=== PATIENT | male | born 1960 | race Caucasian/White ===

== ENCOUNTER 2018-01-02 09:53 | Inpatient (IN) ==
[2018-01-02] MEDS ORDERED: Metoprolol Tartrate 25 MG Tablet PO ONE (10:42)
[2018-01-02] MEDS ORDERED: Chlorhexidine Gluconate 2% 1 Pack (2 Cloths) TOPICAL ONE (10:42)
[2018-01-02] MEDS ORDERED: Sodium Chlor 0.9% Inj 73.07 ML, Ropivacaine 0.5% PF Inj 24.63 ML, Ketorolac Inj 30 MG, ... P-ARTICULR SCH ×5 (10:45)
[2018-01-02] MEDS ORDERED: Chlorhexidine 4% Topical 120 APPLIC/120 ML Bottle TOPICAL SCH (10:45)
[2018-01-02] MEDS ORDERED: Dexamethasone PF Inj 10 MG/ML Vial ONE (10:49)
[2018-01-02] MEDS ORDERED: ceFAZolin 2 GM Premix Inj 0 GM/0 ML PIGGYBACK IV.SIG ONE (10:50)
[2018-01-02] MEDS ORDERED: Sodium Chloride 0.9% 2 ML Flush PRN IV.FLUSH (10:59)
[2018-01-02] MEDS ORDERED: SODIUM CHLOR 0.9% IV.SIG SCH ×2 (11:00→17:00)
[2018-01-02] MEDS ORDERED: Dexamethasone Inj 20 MG/5 ML Vial IV.PUSH ONE (11:00)
[2018-01-02] MEDS ORDERED: ceFAZolin 2 GM Premix Inj 2 GM/50 ML PIGGYBACK IV.SIG SCH (11:00)
[2018-01-02] MEDS ORDERED: Sodium Chlor 0.9% Inj 500 ML IV.SIG SCH (11:00)
[2018-01-02] MEDS ORDERED: TRANEXAMIC ACID IV.SIG SCH ×2 (11:00→17:00)
[2018-01-02] MEDS ORDERED: Vancomycin Inj 1,000 MG in Sodium Chlor 0.9% Inj 250 ML IV.SIG SCH (11:00)
[2018-01-02] MEDS ORDERED: Lidocaine PF 1% Inj 5 ML Vial ONE (12:34)
[2018-01-02] MEDS ORDERED: Bupivacaine 0.5% Inj 50 ML MDV Vial ONE (12:34)
[2018-01-02] MEDS ORDERED: Bupivacaine Liposomal PF 1.3% Inj 20 ML Vial ONE (12:34)
[2018-01-02] MEDS ORDERED: Bupivacaine/Dextrose 0.75% Inj 2 ML Ampul ONE ×2 (12:44→13:36)
[2018-01-02] MEDS ORDERED: Propofol Inj 500 MG/50 ML Vial ONE ×2 (12:44→15:34)
[2018-01-02] MEDS ORDERED: Aluminum/Magnesium/Simethacone Susp 30 ML UDC PO PRN (15:47)
[2018-01-02] MEDS ORDERED: Post-op Orders (for Pharmacy) OTHER STA (15:47)
[2018-01-02] MEDS ORDERED: Bisacodyl 10 MG Supp RECTAL PRN (15:47)
--- NOTE | 2018-01-02 15:49 | P.OP ---
- Preoperative Diagnosis (1) Osteoarthritis of left knee - Postoperative Diagnosis (1) Osteoarthritis of left knee Date of procedure: 01/02/18 Procedure: Left total knee arthroplasty Anesthesia: regional, spinal Surgeon: Francisco Pink MD Kiln Drawer: CEASAR Dodson The surgical procedure was assisted by my Advanced Registered Nurse Practitioner. My MOTORCYCLE MAKER presence was necessary throughout this case for the manipulation and positioning of the surgical extremity. My MOTORCYCLE MAKER was assisting me throughout the duration of this procedure. The skill set of an Advance Registered Nurse Practitioner was medically necessary to complete this procedure. During the surgical case, the instructor adjunct surgical technician was working at the back table and the Advance Registered Nurse Practitioner was directly assisting me. Operation and Findings: IMPLANTS: DePuy Attune: Patella: size 38. Femur, posterior stabilized size 8. Tibia, rotating platform size 7. Tibial insert, rotating platform, posterior stabilized size 5 mm thickness. ESTIMATED BLOOD LOSS: 75 cc TOURNIQUET TIME: 45 minutes at 250 mmHg pressure. JUSTIFICATION FOR PROCEDURE: The patient has end-stage osteoarthritis to the knee. There is an attached conservative measures pathway form in the chart that describes the nonoperative measures that were undertaken prior to consideration of surgical management. The patient understood the risks and benefits of surgical management. See my office notes for further details PROCEDURE: The patient was brought back to the operative theatre. Adequate anesthesia was obtained. The patient received intravenous vancomycin and Ancef. The lower extremity was prepped and draped in the usual sterile fashion.The leg was exsanguinated, the tourniquet was raised. A standard anterior incision was performed followed by medial parapatellar arthrotomy was performed. End-stage arthritis was identified. Osteotomy of the patella was performed. We drilled holes for the patella. We trialed the patella component. We placed an intramedullary guide into the distal femur. We ultimately resected 13 mm off of the distal femur in 5 degrees of valgus. The remnants of the ACL and PCL were resected. Osteotomy of the proximal tibia was performed, resecting 7 mm off of the medial side. This was done with 3 degrees of posterior slope using an extramedullary guide. The distal end of the guide was placed in the mid aspect of the ankle. The femur was sized, and four chamfer cuts were completed in 3 of external rotation. We then cut the central box in the distal femur to replace the PCL. We resected the remnants of the menisci and removed osteophytes off of the femur and tibia. We then trialed the knee. We punched the tibia for the keel, and then used standard technique to cement in components. Excess cement was removed. We trialed the knee again and the final polyethylene thickness was chosen to provide extension to 0 degrees, and flexion of 140 degrees to gravity. The ligaments were appropriately balanced. Lateral release was necessary to obtain excellent patellofemoral tracking. The tourniquet was released and adequate hemostasis was obtained. An intra- articular injection of a ropivacaine cocktail was injected. The posterior knee was inspected for excess cement, which was removed. The final polyethylene was put into position after thorough irrigation. We then closed deep fascia with a #2 Stratafix followed by skin with 2-0 Vicryl followed by Dermabond dressing. Postop plan is to weight-bear as tolerated. DVT prophylaxis will be performed with SCDs, TREV hose, early mobilization, and aspirin.
[2018-01-02] MEDS ORDERED: fentaNYL Citrate Inj 100 MCG/2 ML Ampul ONE (16:24)
--- NOTE | 2018-01-02 16:29 | P.DCO ---
- Physical Therapy Physical Therapy: Gait training, Transfer training, bed to chair Knee: Total knee Left Lower Extremity Weight Bearing: Weight bearing as tolerated Left Lower Extremity Range of Motion: Active ROM - Nursing Dressing changes: Do not change dressing Additional instructions: First dressing change in the office - Certification Need for Home Health services: I have seen patient Moreno Moore on 01/02/18. My clinical findings support the need for the requested home health care services because: Need for Home Health Services: Limited ability to care for self, High risk of falls Homebound Certification: I certify that my clinical findings support that this patient is homebound because: Homebound Certification: Post-op weakness, Unsteady gait/balance
--- NOTE | 2018-01-02 16:54 | XR ---
EXAM DATE: 01/02/2018 4:35 PM EDT AGE/SEX: 57 years / Male INDICATIONS: Post op left knee replacement CLINICAL DATA: This is the patient's initial encounter. Patient reports that signs and symptoms have been present for 1 day and indicates a pain score of Nonresponsive. MEDICAL/SURGICAL HISTORY: None. None. COMPARISON: No prior exams available for comparison. FINDINGS: AP and lateral views of the knee were obtained and demonstrate the patient status post arthroplasty. The femoral and tibial components are intact and in normal alignment. There are postoperative changes involving the patella. There is anterior soft tissue swelling and gas. There is mild overlying artif act. CONCLUSION: Expected postsurgical changes status post arthroplasty. Electronically signed by: Raleigh Lilly MD 01/02/2018 4:53 PM EDT
[2018-01-02] MEDS: Sod Chloride 0.9% Inj 1,000 ML IV.CONT SCH (17:00)
[2018-01-02] MEDS: Morphine Sulfate Inj 2 MG/ML Vial IV.PUSH PRN ×2 (18:45→22:02)
[2018-01-02] MEDS: ceFAZolin 1 GM Premix Inj 1 GM/50 ML FROZ.PIGGY IV.SIG SCH (19:53)
[2018-01-02] MEDS ORDERED: Sodium Chloride 0.9% 2 ML Flush BID IV.FLUSH SCH (21:00)
[2018-01-02] MEDS ORDERED: Zolpidem Tartrate 5 MG Tablet PO PRN (21:00)
[2018-01-02] MEDS: Senna/Docusate Sodium 8.6/50 MG Tablet PO SCH (22:08)
[2018-01-03] MEDS: Morphine Sulfate Inj 2 MG/ML Vial IV.PUSH PRN ×2 (02:27→05:13)
[2018-01-03] MEDS: ceFAZolin 1 GM Premix Inj 1 GM/50 ML FROZ.PIGGY IV.SIG SCH ×2 (02:27→08:52)
[2018-01-03] MEDS: Sod Chloride 0.9% Inj 1,000 ML IV.CONT SCH (04:35)
[2018-01-03] MEDS: Multivitamin/Minerals Therapeutic Tablet PO SCH ×2 (05:35→08:53)
[2018-01-03 06:53] LABS: Hematocrit 36.7 % (39.0-51.0); Hemoglobin 12.6 gm/dL (13.0-17.0)
--- NOTE | 2018-01-03 07:23 | P.PNOP ---
Subjective Interval history: The patient is resting comfortably in bed in no acute distress. The patient states he has been able to ambulate with minimal difficulty. The patient has requested stronger pain medication. Physical Exam Vital signs: Vital Signs 01/02/18 10:42 01/02/18 16:07 01/02/18 16:10 Temperature 97 F L 97.6 F Pulse Rate 61 67 74 Respiratory Rate 18 14 15 Blood Pressure 115/71 89/54 L 93/55 L Pulse Oximetry 96 95 96 01/02/18 16:15 01/02/18 16:30 01/02/18 16:45 Temperature Pulse Rate 72 67 67 Respiratory Rate 15 17 16 Blood Pressure 94/53 L 96/51 L 104/59 L Pulse Oximetry 97 97 98 01/02/18 17:00 01/02/18 18:00 01/02/18 19:06 Temperature 97.5 F L Pulse Rate 66 66 Respiratory Rate 15 16 15 Blood Pressure 110/63 128/70 Pulse Oximetry 98 97 01/02/18 20:05 01/02/18 22:56 01/03/18 04:00 Temperature 97.8 F 97.5 F L 97.3 F L Pulse Rate 80 82 68 Respiratory Rate 12 16 16 Blood Pressure 129/73 113/62 127/71 Pulse Oximetry 96 97 98 Intake & Output 01/02/18 01/03/18 01/03/18 18:59 06:59 18:59 Intake Total 1591.21 / 1591.21 1530 / 1530 Output Total 75 / 75 950 / 950 Balance 1516.21 / 1516.21 580 / 580 Weight 112.1 kg 113.1 kg Intake: IV 411.21 / 411.21 150 / 150 Cyklokapron Inj 1,121 MG In NS 111.21 / 111.21 Inj 100 ML @ 200 mls/hr IV.SIG ONCE BATSHEVA Rx#:[id number] Vancomycin Inj 1,000 MG In NS 250 / 250 Inj 250 ML @ 250 mls/hr IV.SIG BREAK OFF WORKER BATSHEVA Rx#:[id number] Ancef 1 GM Premix Inj 1 gm In 150 / 150 50 ml @ 100 mls/hr IV.SIG Q6H BATSHEVA Rx#:[id number] Ancef 2 GM Premix Inj 2 gm In 50 / 50 50 ml @ 100 mls/hr IV.SIG BREAK OFF WORKER BATSHEVA Rx#:[id number] Oral 30 / 30 1380 / 1380 Anesthesia Amount 1150 / 1150 Output: Urine 0 / 0 200 / 200 Estimated Blood Loss 75 / 75 Urine Amount (Catheter) 750 / 750 Straight 750 / 750 Other: Date of Last Bowel Movement 01/02/18 Weight On Admission 112.1 kg Narrative: The patient's dressing is clean, dry, and intact. EHL/TA/G are intact. 2+ pedal pulse. The patient's calf is soft and nontender. Sensation is intact to light touch distally. - Urinary Catheter Management Straight Cath placed during this visit: no Results - Labs CBC & Chem 7: 01/03/18 05:55 Laboratory Results - last 24 hr 01/02/18 01/03/18 10:35 05:55 Hgb 12.6 L Hct 36.7 L Blood Type A Positive Blood Type Recheck Required Antibody Screen Negative - Imaging Impressions Knee X-Ray 01/02/18 15:47 CONCLUSION: Expected postsurgical changes status post arthroplasty. - Procedures Left total knee arthroplasty Assessment and Plan - Problem List (1) Status post total knee replacement, left Code(s): Z96.652 - Presence of left artificial knee joint Status: Acute (2) Osteoarthritis of left knee Code(s): M17.12 - Unilateral primary osteoarthritis, left knee Status: Acute - Assessment and Plan POD #1: Left total knee arthroplasty 1. Weightbearing as tolerated on left lower extremity. 2. Aspirin 81 mg twice a day for DVT prophylaxis. 3. Ice as needed for swelling. 4. Stable per ortho for discharge to home health today following his class. 5. The patient will follow up with Dr. Pink and/or CEASAR Rojas as previously scheduled.
[2018-01-03] MEDS ORDERED: oxyCODONE/Acetaminophen 10/325 Tablet PO PRN (07:26)
[2018-01-03] MEDS ORDERED: Dexamethasone Inj 20 MG/5 ML Vial IV.PUSH ONE (08:00)
[2018-01-03] MEDS: Senna/Docusate Sodium 8.6/50 MG Tablet PO SCH (08:53)
[2018-01-03] MEDS ORDERED: Atenolol 50 MG Tablet PO SCH (09:00)
[2018-01-03] MEDS ORDERED: Venlafaxine XR 75 MG Capsule PO SCH (09:00)
[2018-01-03 12:35] VITALS: BP 142/76; PULSE 79; RESP 17; TEMP 97.6; O2SAT 94
--- NOTE | 2018-01-04 16:54 | P.DS ---
Date of admission: 01/02/18 15:51 Primary care physician: Haile Rodríguez DO Attending physician on discharge: Francisco Pink Anticipated date of discharge: 01/03/18 Brief History from admission: The patient was admitted to the hospital for severe OA of the left knee to have a left TKA. DS: Diagnosis - Discharge Diagnosis (1) Status post total knee replacement, left Status: Acute (2) Osteoarthritis of left knee Status: Acute DS: Summary Hospital Course: The patient was admitted to the hospital for severe osteoarthritis of the [left ] knee to have a [left] total knee arthroplasty. The patient's surgery went well with no complication. The patient is on a [regular] diet. The patient's DVT prophylaxis includes use of [ASA 81 mg BID]. The patient is weightbearing as tolerated. The patient was discharged [home with home health] and will follow up in the office with Dr. Pink and/or CEASAR Rojas as previously scheduled. - Time Spent with Patient Total time spent providing and/or coordinating discharge services: Greater than 30 minutes - Quality: VTE Deep Vein Thrombosis/Pulmonary Embolism Present on Admission: No Exam Vital signs: Intake & Output 01/03/18 01/04/18 01/04/18 18:59 06:59 18:59 Other: Date of Last Bowel Movement 01/02/18 Narrative: The patient's dressing is clean, dry, and intact. EHL/TA/G are intact. 2+ pedal pulse. The patient's calf is soft and nontender. Sensation is intact to light touch distally. Results Procedures completed during hospitalization: Left total knee arthroplasty - Impressions ITS Impressions Knee X-Ray 01/02/18 15:47 CONCLUSION: Expected postsurgical changes status post arthroplasty. Discharge Plan - Discharge Disposition Patient Disposition: Disch W/Home Health Service - Discharge Condition Condition: Stable - Discharge Order Discharge Orders: Discharge Order (Routine); Ordered 01/02/18 Ordered By: Yao Mcgrath - Discharge Details Anticipated Discharge Date: 01/03/18 - Physicians Team Primary Care Provider: Haile Rodríguez Attending Provider: Francisco Pink - Rxs /Orders / Referrals /Forms Prescriptions: Continue atenolol 50 mg Tablet 50 mg PO DAILY losartan 100 mg Tablet 100 mg PO DAILY venlafaxine 75 mg Capsule,Extended Release 24hr 75 mg PO DAILY Discontinued meloxicam [Mobic] 15 mg Tablet 15 mg PO DAILY Ambulatory Orders / Order Sets / DME: Adjustable Commode 3-in-1 (1 each) (Routine) Location: Determined by Patient Ordered By: Yao Mcgrath CPM - Continuous Passive Motion Machine (1 each) (Routine) Location: Determined by Patient Ordered By: Yao Mcgrath Walker With Front Wheels (1 each) (Routine) Location: Determined by Patient Ordered By: Yao Mcgrath Referrals: Francisco Pink MD [Physician] - See Instructions (F/U in the office as previously scheduled with Dr. Pink or Moreno Mcgrath, CHAIM) Haile Rodríguez DO [Primary Care Provider] - See Instructions - Discharge Instructions Patient Printed Instructions: Aspirin (By mouth), How to Use an Incentive Spirometer (DC), Narcotic Pain Management (DC), TREV Hose (DC), Knee Replacement (DC) Additional Instructions: Keep or make your follow up appointments as directed by your provider. Take medications as directed including aspirin to prevent blood clots that are common after surgery. Continue to use ice as needed to prevent swelling and reduce pain. Continue to use incentive spirometer after discharge to prevent pneumonia. Continue to wear TREV hose as directed. - Post Discharge Care Plan Care Plan Goals: Discharge Care Plan Goals for Total Knee Replacement You have undergone knee replacement surgery. Your doctor replaced your painful joint with an artificial joint to relieve pain and restore movement. Here are some goals to help you heal well. Directions to Meet your Goals: 1. Activity & Exercises: * Take pain medicine as directed by your doctor. * Sit in chairs with arms. The arms make it easier for you to stand up or sit down. * Dont sit for more than 30 to 45 minutes at one time. * Nap if you are tired, but dont stay in bed all day. * Sleep with a pillow under your ankle, not your knee. Be sure to change the position of your leg during the night. * Wear the support stockings you were given in the hospital as directed by your surgeon. 2. Prevent Falls/Injury: The martin to successful recovery is movement with walking and exercising your knee as directed by your doctor. * Arrange your household to keep the items you need handy. Keep everything else out of the way. * Remove items that may cause you to fall, such as throw rugs and electrical cords. * Use nonslip bath mats, grab bars, an elevated toilet seat, and a shower chair in your bathroom * Sit on a shower stool or chair when you shower to keep from falling. * Until your balance, flexibility, and strength improve, use a cane, crutches, a walker, handrails, or someone to help you. * Keep your hands free by using a backpack, jaja pack, apron, or pockets to carry things * Walk up and down stairs with support. Try one step at a time. Use the railing if possible. * Dont drive until your doctor says its OK. * Dont drive while you are taking opioid pain medicine. 3. Precautions: * Prevent infection. Any infection will need to be treated immediately. Call your doctor right away if you think you might have an infection. * Tell your dentist that you have an artificial joint and take antibiotics as prescribed before any dental work. * Tell all your healthcare providers about your artificial joint before any medical procedure. * Maintain a healthy weight. Get help to lose any extra pounds. Added body weight puts stress on the knee. * Your medications may include blood-thinning medicine to prevent blood clots or antibiotics to prevent infection-prevent any falls or cuts 4. Incision Care: * Prevent infection by washing your hands often. If an infection occurs, it will need to be treated right away. * Call your doctor right away if you think you may have an infection. Symptoms include a fever or an incision that leaks white, green, or yellow fluid. * Don't soak your incision in water until your doctor says its OK. This means no hot tubs, bathtubs, or swimming pools. * Follow your doctor's instructions for changing the dressing. * Dont rub the incision, or apply creams or lotions to it. * If you notice any redness or drainage around the bandage site, contact your surgeon's office immediately. 5. Follow-Up: Do Not miss your follow-up appointment. Keep up with all your appointments and yearly check ups When to call your doctor: Call your doctor right away if you have: Fever of 100.4F (38C) or higher, or as directed by your doctor Shaking chills Stiffness, or inability to move the knee Increased swelling in your leg Increased redness, tenderness, or swelling in or around the knee incision Drainage from the knee incision Increased knee pain Call 911: Call 911 right away if you have: Chest pain Shortness of breath Any pain or tenderness in your calf
== END 2018-01-03 14:15 | disposition home health service (06) ==
LOC: HSDC 09:53 → EDSTATUS 13:00 → HSDI 15:51 → N06 22:32
PROVIDERS: ADMIT Orthopaedic Surgery; ATTEND Orthopaedic Surgery